=== PATIENT | male | born 1990 | race African-American/Black ===

== ENCOUNTER 2019-01-23 21:15 | Emergency (ER) | payer MEDICAID ==
[~2019-01-23] VITALS: Ht 160 cm; Wt 70.0 kg
[2019-01-23 22:37] VITALS: BP 140/58
[2019-01-24] MEDS ORDERED: IBUPROFEN 600MG TABLET PO ONE
== END 2019-01-24 00:11 | disposition home or self-care (01) ==
LOC: ER 21:15
DX: S91.331A Puncture wound without foreign body, right foot, initial encounter (principal); W22.8XXA Striking against or struck by other objects, initial encounter; Y93.89 Activity, other specified; Y92.89 Other specified places as the place of occurrence of the external cause; Y99.8 Other external cause status
CPT/HCPCS: 99282